=== PATIENT | female | born 1980 | race Caucasian/White ===

== ENCOUNTER 2018-09-02 18:53 | Emergency (ER) | payer BC ==
[2018-09-02 19:16] VITALS: O2SAT 97
[2018-09-02] MEDS ORDERED: Sodium Chloride 0.9% 1000 ML 1,000 ML IV STA (19:23)
[2018-09-02] MEDS ORDERED: Zofran 4 MG/2 ML VIAL IV ONE (19:28)
--- NOTE | 2018-09-02 19:28 | ERPHSYRPT ---
- History of Present Illness Time Seen by Provider: 09/02/18 19:19 Historian: patient Exam Limitations: no limitations Patient Subjective Stated Complaint: pt reports watery diarrhea for 3 days, states she also has nausea as well as decreased urinary output. pt also reports an insect bite to her left lower leg. Triage Nursing Assessment: pt is aox3, pupils perrl, afebrile, resps easy and non labored, radial pulses strong and equal, abd is soft and tender to the epigastric region, bowel sounds are present x4, pt skin pink warm dry. a reddened open area approx 2 cmx 2cm is noted to the left lower left just superior to the ankle, no drainage noted at this time. Physician History: 38 year old morbidly obese white female arrives with complaint of nausea and diarrhea for 3 days. states also lesion on left lower leg x 1 week erythematous possible bite. Timing/Duration: day(s) (2-3 days) Activities at Onset: none Severity of Pain-Max: mild Severity of Pain-Current: none Modifying Factors: Improves With: vomiting. Worsens With: analgesics, antacids , breathing, coughing, defecating, eating, exercise, lying down, movement, palpation, rest, urinating, position, walking, other Associated Symptoms: denies symptoms Previous symptoms: no prior history Allergies/Adverse Reactions: morphine Allergy (Verified 09/02/18 19:16) Hx Tetanus, Diphtheria Vaccination/Date Given: Yes Hx Influenza Vaccination/Date Given: No Hx Pneumococcal Vaccination/Date Given: No Immunizations Up to Date: Yes - Review of Systems Constitutional: No Fever, No Chills Eyes: No Symptoms Ears, Nose, & Throat: No Symptoms Respiratory: No Cough, No Dyspnea Cardiac: No Chest Pain, No Edema, No Syncope Abdominal/Gastrointestinal: Nausea, Vomiting, Diarrhea, No Abdominal Pain, No Constipation, No Hematemesis, No Hematochezia, No Melena, No Dysphagia, No Appetite Changes Genitourinary Symptoms: No Dysuria Musculoskeletal: No Back Pain, No Neck Pain Skin: Other (1,5 cm lesion left lef possible insect bite) Neurological: No Dizziness, No Focal Weakness, No Sensory Changes Psychological: No Symptoms Endocrine: No Symptoms All Other Systems: Reviewed and Negative - Past Medical History Pertinent Past Medical History: Yes Cardiac History: Hypertension Musculoskeletal History: Arthritis GI Medical History: Gallbladder Disease Psycho-Social History: Depression - Past Surgical History Past Surgical History: Yes Gastrointestinal: Appendectomy, Cholecystectomy Musculoskeletal: Orthopedic Surgery Female Surgical History: Hysterectomy - Social History Smoking Status: Current every day smoker Drug Use: none Patient Lives Alone: No - Female History Hx Last Menstrual Period: 2007 Hx Now: No - Nursing Vital Signs Nursing Vital Signs: Initial Vital Signs Temperature 97.8 F 09/02/18 19:02 Pulse Rate 110 H 09/02/18 19:02 Respiratory Rate 20 09/02/18 19:02 Blood Pressure 96/82 09/02/18 19:02 O2 Sat by Pulse Oximetry 97 09/02/18 19:02 Pain Scale Pain Intensity 4 - Physical Exam General Appearance: no apparent distress, alert, obese Eye Exam: PERRL/EOMI, eyes nml inspection Ears, Nose, Throat Exam: normal ENT inspection, pharynx normal, moist mucous membranes Neck Exam: normal inspection, non-tender, supple, full range of motion Respiratory Exam: normal breath sounds, lungs clear, No respiratory distress Cardiovascular Exam: regular rate/rhythm, normal heart sounds Gastrointestinal/Abdomen Exam: soft, No tenderness, No mass Back Exam: normal inspection, normal range of motion, No CVA tenderness, No vertebral tenderness Extremity Exam: normal inspection, normal range of motion, pelvis stable Neurologic Exam: alert, oriented x 3, cooperative, flour tester II-XII nml as tested, normal mood/affect, nml cerebellar function, sensation nml, No motor deficits Skin Exam: other (1.5 cm erythematous lesion left leg) SpO2 Interpretation: normal (97%) SpO2: 97 Oxygen Delivery: Room Air Ordered Tests: Active Orders 24 hr Category Date Time Status IV Insertion STAT Care 09/02/18 19:23 Active CBC W DIFF Stat Lab 09/02/18 19:29 Completed CMP Stat Lab 09/02/18 19:29 Completed UA W/RFX UR CULTURE Stat Lab 09/02/18 19:00 Completed Medication Summary Generic Name Dose Route Start Last Admin Trade Name Freq PRN Reason Stop Dose Admin Sodium Chloride 1,000 mls @ 999 mls/hr 09/02/18 19:23 09/02/18 19:35 Sodium Chloride 0.9% 1000 Ml IV 09/02/18 20:23 999 mls/hr .Q1H1M STA Administration Discontinued Medications Generic Name Dose Route Start Last Admin Trade Name Freq PRN Reason Stop Dose Admin Sodium Chloride Confirm 09/02/18 19:32 Sodium Chloride 0.9% 1000 Ml Administered 09/02/18 19:33 Dose 1,000 mls @ ud .ROUTE .STK-MED ONE Ondansetron HCl 4 mg 09/02/18 19:28 09/02/18 19:36 Zofran 4 Mg/2 Ml Vial IV 09/02/18 19:29 4 mg STAT ONE Administration Ondansetron HCl Confirm 09/02/18 19:32 Zofran 4 Mg/2 Ml Vial Administered 09/02/18 19:33 Dose 4 mg .ROUTE .STK-MED ONE Trimethoprim/Sulfamethoxazole 1 tab 09/02/18 20:16 Bactrim Ds Tablet PO 09/02/18 20:17 STAT ONE Lab/Rad Data: Laboratory Result Diagrams 09/02/18 19:29 09/02/18 19:29 Laboratory Results 09/02/18 09/02/18 09/02/18 Range/Units 19:29 19:29 19:00 WBC 13.0 H (4.0-10.5) K/mm3 RBC 5.35 (4.1-5.4) M/mm3 Hgb 16.3 H (12.0-16.0) gm/dl Hct 48.1 H (35-47) % MCV 89.9 (78-100) fl MCH 30.4 (26-32) pg MCHC 33.9 (32-36) g/dl RDW 13.2 (11.5-14.0) % Plt Count 150 (150-450) K/mm3 MPV 13.0 H (6-9.5) fl Gran % 81.3 H (36.0-66.0) % Eos # (Auto) 0.20 (0-0.5) Absolute Lymphs (auto) 1.65 (1.0-4.6) Absolute Monos (auto) 0.56 (0.0-1.3) Lymphocytes % 12.7 L (24.0-44.0) % Monocytes % 4.3 (0.0-12.0) % Eosinophils % 1.5 (0.00-5.0) % Basophils % 0.2 (0.0-0.4) % Absolute Granulocytes 10.54 H (1.4-6.9) Basophils # 0.03 (0-0.4) Sodium 140 (137-145) mmol/L Potassium 3.8 (3.5-5.1) mmol/L Chloride 104 (98-107) mmol/L Carbon Dioxide 25 (22-30) mmol/L Anion Gap 15.8 H (5-15) MEQ/L BUN 14 (7-17) mg/dL Creatinine 0.64 (0.52-1.04) mg/dL Estimated GFR > 60.0 ML/MIN Glucose 137 H (74-106) mg/dL Calcium 9.6 (8.4-10.2) mg/dL Total Bilirubin 0.60 (0.2-1.3) mg/dL AST 45 H (14-36) U/L ALT 50 H (0-35) U/L Alkaline Phosphatase 92 (38-126) U/L Serum Total Protein 7.7 (6.3-8.2) g/dL Albumin 4.5 (3.5-5.0) g/dL Urine Color YELLOW (YELLOW) Urine Appearance CLOUDY (CLEAR) Urine pH 5.0 (5-6) Ur Specific [place] 1.023 (1.005-1.025) Urine Protein NEGATIVE (Negative) Urine Ketones NEGATIVE (NEGATIVE) Urine Blood NEGATIVE (0-5) Louis/ul Urine Nitrite NEGATIVE (NEGATIVE) Urine Bilirubin NEGATIVE (NEGATIVE) Urine Urobilinogen NEGATIVE (0-1) mg/dL Ur Leukocyte Esterase NEGATIVE (NEGATIVE) Urine WBC (Auto) 3-5 (0-5) /HPF Urine RBC (Auto) NONE (0-2) /HPF U Epithel Cells (Auto) FEW (FEW) /HPF Urine Bacteria (Auto) RARE (NEGATIVE) /HPF Urine Mucus (Auto) SLIGHT (NEGATIVE) /HPF Urine Culture Reflexed NO (NO) Urine Glucose NEGATIVE (NEGATIVE) mg/dL - Progress Progress: improved Progress Note: 09/02/18 20:21 This is a 38-year-old white female she arrives with complaint of a bite wound on her left ankle also states she's had vomiting and diarrhea for 2 days bite wound has been there for a week. On physical examination patient does not appear to be in acute distress. Bite wound on her left ankle consists of an eschar 1.5 cm width of surrounding erythema to the margin there does not appear to be a drainable abscess to the area. Patient also with a white count of proximally 16 and she is better after receiving 1 L of normal saline. Will plan to discharge patient with Zofran, plenty of fluids, Bactrim,. Patient to follow-up with her family doctor - Departure Time of Disposition: 20:23 Departure Disposition: Home Clinical Impression: Vomiting Qualifiers: Vomiting type: unspecified Vomiting Intractability: non-intractable Nausea presence: with nausea Qualified Code(s): R11.2 - Nausea with vomiting, unspecified Diarrhea Qualifiers: Diarrhea type: unspecified type Qualified Code(s): R19.7 - Diarrhea, unspecified Insect bite of left leg Qualifiers: Encounter type: initial encounter Qualified Code(s): S80.862A - Insect bite ( nonvenomous), left lower leg, initial encounter; W57.XXXA - Bitten or stung by nonvenomous insect and other nonvenomous arthropods, initial encounter Condition: Fair Critical Care Time: No Referrals: [facility]LE[facility]AN[facility]LL[facility] [Primary Care Provider] - Instructions: Vomiting -- Adult Additional Instructions: Return home. Plenty of fluids. Clear fluids only 24-48 hours if nausea vomiting or diarrhea. Bactrim DS one orally twice a day for 10 days. Zofran as directed. Follow-up with your family doctor. Return for acute distress or for severe symptoms. Prescriptions: Ondansetron ODT 4 MG [Zofran Odt 4 mg] 4 mg PO Q6H PRN PRN #10 tab.rapdis PRN Reason: nausea and vomiting Smz/Tmp Ds Tablet [Bactrim Ds Tablet] 1 tab PO BID #20 tablet
[2018-09-02] MEDS ORDERED: Sodium Chloride 0.9% 1000 ML 1,000 ML ONE (19:32)
[2018-09-02] MEDS ORDERED: Zofran 4 MG/2 ML VIAL ONE (19:32)
[2018-09-02 19:33] LABS: BASOPHIL % 0.2 % (0.0-0.4); Basophil (Absolute #) 0.03 (0-0.4); Eosinophil % 1.5 % (0.00-5.0); Granulocyte Absolute (ANC) 10.54 (1.4-6.9); Granulocytes % 81.3 % (36.0-66.0); Hematocrit 48.1 % (35-47); Hemoglobin 16.3 gm/dl (12.0-16.0); Lymphocyte (Absolute #) 1.65 (1.0-4.6); Lymphocytes % 12.7 % (24.0-44.0); Mean Cell Volume 89.9 fl (78-100); Mean Corpuscular Hgb Concent. 33.9 g/dl (32-36); Monocyte (Absolute #) 0.56 (0.0-1.3); Monocytes % 4.3 % (0.0-12.0); Platelet Count 150 K/mm3 (150-450); Red Blood Count 5.35 M/mm3 (4.1-5.4); Red Cell Distribution Width 13.2 % (11.5-14.0)
[2018-09-02 19:35] LABS: Mean Corpuscular Hemoglobin 30.4 pg (26-32)
[2018-09-02 19:45] LABS: ALBUMIN 4.5 g/dL (3.5-5.0); ALKALINE PHOSPHATASE 92 U/L (38-126); ANION GAP 15.8 MEQ/L (5-15); BLOOD UREA NITROGEN 14 mg/dL (7-17); CHLORIDE 104 mmol/L (98-107); Calcium 9.6 mg/dL (8.4-10.2); Carbon Dioxide 25 mmol/L (22-30); Creatinine 1 0.64 mg/dL (0.52-1.04); Glucose 137 mg/dL (74-106); Potassium 3.8 mmol/L (3.5-5.1); SGOT/AST 45 U/L (14-36); SGPT/ALT 50 U/L (0-35); SODIUM 140 mmol/L (137-145); Total Protein 7.7 g/dL (6.3-8.2)
[2018-09-02 19:51] LABS: Appearance CLOUDY (CLEAR); Bilirubin NEGATIVE (NEGATIVE); Blood NEGATIVE Ery/ul (0-5); Glucose NEGATIVE (NEGATIVE); Ketones NEGATIVE (NEGATIVE); Leukocyte Esterase NEGATIVE (NEGATIVE); Nitrite NEGATIVE (NEGATIVE); Protein,Urine Dip NEGATIVE (Negative); Specific Gravity 1.023 (1.005-1.025); Urobilinogen NEGATIVE mg/dL (0-1)
[2018-09-02] MEDS ORDERED: BACTRIM DS TABLET PO ONE ×2 (20:16→20:25)
[2018-09-02 20:52] VITALS: BP 155/100; PULSE 80
== END 2018-09-02 20:30 | disposition home or self-care (01) ==
LOC: ED 18:53
DX: R11.2 Nausea with vomiting, unspecified (principal); R19.7 Diarrhea, unspecified; S80.862A Insect bite (nonvenomous), left lower leg, initial encounter
CPT/HCPCS: 36000; 36415; 80053; 81001; 85025; 96360; 96374; 99284; J2405; A9270-GY